=== PATIENT | female | born 1975 | race African-American/Black ===

== ENCOUNTER 2017-07-30 15:18 | Day surgery (SDC) | payer OTHER ==
[2017-07-30] MEDS ORDERED: LACTATED RINGER'S 1,000 ML IV* (16:00)
[2017-07-30 16:33] LABS: ADD MAN DIFF? NO
[2017-07-30 16:35] LABS: WHITE BLOOD COUNT 9.8 10^3/ul (4.8-10.8)
[2017-07-30 16:35] LABS: BASOPHIL # 0.1 10^3/ul (0.0-0.1); BASOPHILS % 0.5 % (0.0-2.0); EOSINOPHILS # 0.3 10^3/ul (0.0-0.5); EOSINOPHILS % 2.6 % (0.0-7.0); HEMATOCRIT 30.3 % (37.0-47.0); HEMOGLOBIN 10.9 g/dl (12.0-16.0); LYMPHOCYTES # 1.8 10^3/ul (0.8-2.9); MEAN CORPUSCULAR HEMOGLOBIN 32.7 pg (29.0-33.0); MEAN PLATELET VOLUME 10.1 fl (7.4-10.4); MONOCYTE # 0.4 10^3/ul (0.3-0.9); MONOCYTES % 4.5 % (0.0-11.0); NEUTROPHIL # 7.3 10^3/ul (1.6-7.5); NEUTROPHILS % 74.1 % (39.0-77.0); PLATELET COUNT 241 10^3/UL (140-415); RED BLOOD COUNT 3.33 10^6/ul (4.20-5.40); RED CELL DISTRIBUTION WIDTH 20.2 % (11.5-14.5)
[2017-07-30 16:41] LABS: ADD UMIC YES; UR ASCORBIC ACID NEGATIVE (NEGATIVE); UR BACTERIA FEW /HPF (NONE SEEN); UR BILIRUBIN (Dip) NEGATIVE (NEGATIVE); UR BLOOD (Dip) 3+ mg/dL (NEGATIVE); UR CLARITY CLEAR (CLEAR); UR COLOR YELLOW (YELLOW); UR GLUCOSE (Dip) NEGATIVE (NEGATIVE); UR KETONES (Dip) NEGATIVE (NEGATIVE); UR LEUKOCYTE ESTERASE (Dip) 1+ Leu/ul (NEGATIVE); UR MUCUS FEW /HPF (NONE SEEN); UR NITRITE (Dip) NEGATIVE (NEGATIVE); UR RBC 13 /HPF (0-5); UR SPECIFIC GRAVITY (Dip) 1.012 (1.003-1.030); UR SQUAMOUS EPITHELIAL CELL FEW /HPF (FEW); UR TOTAL PROTEIN (Dip) NEGATIVE (NEGATIVE); UR UROBILINOGEN (Dip) NEGATIVE (NEGATIVE); UR WBC 3 /HPF (0-5)
[2017-07-30] MEDS ORDERED: MIDAZOLAM 1 MG/ML 2 ML INJ (16:42)
[2017-07-30 16:55] LABS: ALANINE AMINOTRANSFERASE 25 IU/L (13-69); ALBUMIN 4.2 g/dl (3.3-4.9); ALBUMIN/GLOBULIN RATIO 1.31; ALKALINE PHOSPHATASE 54 IU/L (42-121); ANION GAP 14 (8-16); ASPARTATE AMINO TRANSFERASE 24 IU/L (15-46); BILIRUBIN,INDIRECT 0.2 mg/dl (0-1.1); BILIRUBIN,TOTAL 0.2 mg/dl (0.2-1.3); CARBON DIOXIDE 24 mmol/L (21-31); CHLORIDE 105 mmol/L (97-110); GLUCOSE 84 mg/dl (70-220); TOTAL PROTEIN 7.4 g/dl (6.1-8.1)
[2017-07-30 16:56] LABS: INR 0.95; PROTIME 12.8 Sec (11.9-14.9)
[2017-07-30 16:58] LABS: BLOOD UREA NITROGEN 12 mg/dl (7-20); CALCIUM 8.8 mg/dl (8.4-10.2); CREATININE 0.51 mg/dl (0.44-1.00); POTASSIUM 3.8 mmol/L (3.5-5.1); SODIUM 139 mmol/L (135-144)
[2017-07-30 17:01] LABS: PARTIAL THROMBOPLASTIN TIME 36.2 Sec (25.0-35.0)
[2017-07-30] MEDS ORDERED: PROPOFOL 20 ML (17:09)
[2017-07-30] MEDS ORDERED: LIDOCAINE 2% (SDV) 5 ML INJ (17:09)
[2017-07-30] MEDS ORDERED: CEFAZOLIN 1 GM INJ (17:21)
[2017-07-30] MEDS ORDERED: DEXAMETHASONE 4 MG/ML 1 ML INJ (17:26)
[2017-07-30] MEDS ORDERED: ONDANSETRON 4 MG INJ (17:26)
[2017-07-30] MEDS ORDERED: FENTAnyl 50 MCG/ML VIAL (17:29)
[2017-07-30] MEDS ORDERED: OXYTOCIN 10 UNIT INJ (17:35)
[2017-07-30] MEDS ORDERED: EPHEDrine SULFATE 50 MG/5 ML SYG (17:41)
[2017-07-30] MEDS ORDERED: KETOROLAC 30 MG INJ (18:20)
[2017-07-30] MEDS: KETOROLAC 30 MG INJ IM (18:45)
== END 2017-07-30 19:15 | disposition home or self-care (01) ==
LOC: SDS 15:18
DX: O02.1 Missed abortion (principal)
CPT/HCPCS: 59820; 71045; 80053; 81001; 85025; 85610; 85730; 86900; 86901; 88305; 93005

== ENCOUNTER 2017-10-17 07:49 | Emergency (ER) | payer OTHER ==
[2017-10-17] MEDS: KETOROLAC 30 MG INJ IM (08:43)
== END 2017-10-17 09:10 | disposition home or self-care (01) ==
LOC: FTE 07:49
DX: S93.401A Sprain of unspecified ligament of right ankle, initial encounter (principal); W18.49XA Other slipping, tripping and stumbling without falling, initial encounter; Y92.9 Unspecified place or not applicable
CPT/HCPCS: 73610; 73610-RT; 73630; 81025; 99283-25

== ENCOUNTER 2018-05-09 14:16 | Emergency (ER) | payer OTHER ==
[2018-05-09 15:26] LABS: ADD MAN DIFF? NO
[2018-05-09 15:29] LABS: BASOPHIL # 0.1 10^3/ul (0.0-0.1); BASOPHILS % 0.5 % (0.0-2.0); EOSINOPHILS # 0.5 10^3/ul (0.0-0.5); EOSINOPHILS % 5.1 % (0.0-7.0); HEMATOCRIT 29.4 % (37.0-47.0); HEMOGLOBIN 10.9 g/dl (12.0-16.0); LYMPHOCYTES % 20.2 % (15.0-51.0); MEAN CORPUSCULAR HEMOGLOBIN 37.6 pg (29.0-33.0); MEAN CORPUSCULAR HGB CONC 37.1 g/dl (32.0-37.0); MEAN CORPUSCULAR VOLUME 101.4 fl (82.0-101.0); MEAN PLATELET VOLUME 10.1 fl (7.4-10.4); MONOCYTE # 0.7 10^3/ul (0.3-0.9); MONOCYTES % 7.1 % (0.0-11.0); NEUTROPHIL # 6.6 10^3/ul (1.6-7.5); NEUTROPHILS % 66.6 % (39.0-77.0); PLATELET COUNT 239 10^3/UL (140-415); RED CELL DISTRIBUTION WIDTH 14.6 % (11.5-14.5)
[2018-05-09 15:29] LABS: WHITE BLOOD COUNT 9.9 10^3/ul (4.8-10.8)
[2018-05-09 15:34] LABS: ADD UMIC YES; UR ASCORBIC ACID 20 mg/dL (NEGATIVE); UR BILIRUBIN (Dip) 1+ mg/dL (NEGATIVE); UR BLOOD (Dip) 3+ mg/dL (NEGATIVE); UR CLARITY SLIGHTLY CLOUDY (CLEAR); UR COLOR YELLOW (YELLOW); UR GLUCOSE (Dip) NEGATIVE (NEGATIVE); UR KETONES (Dip) NEGATIVE (NEGATIVE); UR LEUKOCYTE ESTERASE (Dip) NEGATIVE Leu/ul (NEGATIVE); UR MUCUS FEW /HPF (NONE SEEN); UR NITRITE (Dip) NEGATIVE (NEGATIVE); UR RBC 34 /HPF (0-5); UR SPECIFIC GRAVITY (Dip) 1.019 (1.003-1.030); UR TOTAL PROTEIN (Dip) NEGATIVE (NEGATIVE); UR UROBILINOGEN (Dip) NEGATIVE (NEGATIVE); UR WBC 2 /HPF (0-5)
[2018-05-09 15:58] LABS: ALANINE AMINOTRANSFERASE 18 IU/L (13-69); ALBUMIN 4.4 g/dl (3.3-4.9); ALBUMIN/GLOBULIN RATIO 1.33; ALKALINE PHOSPHATASE 60 IU/L (42-121); ANION GAP 5 (5-13); ASPARTATE AMINO TRANSFERASE 29 IU/L (15-46); BLOOD UREA NITROGEN 11 mg/dl (7-20); CALCIUM 10.1 mg/dl (8.4-10.2); CARBON DIOXIDE 27 mmol/L (21-31); CHLORIDE 104 mmol/L (97-110); CREATININE 0.42 mg/dl (0.44-1.00); Estimated GFR > 60 mL/min (>60); GLUCOSE 90 mg/dl (70-220); POTASSIUM 4.7 mmol/L (3.5-5.1); SODIUM 136 mmol/L (135-144); TOTAL PROTEIN 7.7 g/dl (6.1-8.1)
== END 2018-05-09 17:15 | disposition home or self-care (01) ==
LOC: FTE 14:16
DX: O99.512 Diseases of the respiratory system complicating pregnancy, second trimester (principal); O36.8920 Maternal care for other specified fetal problems, second trimester, not applicable or unspecified; J02.9 Acute pharyngitis, unspecified; Z3A.16 16 weeks gestation of pregnancy
CPT/HCPCS: 76536; 76805; 80053; 81001; 84702; 85025; 87880; 99284-25

== ENCOUNTER 2018-05-15 15:49 | Emergency (ER) | payer OTHER ==
[2018-05-15] MEDS: METOCLOPRAMIDE 10 MG INJ IV (17:41)
[2018-05-15] MEDS: DIPHENHYDRAMINE 50 MG INJ IV (17:41)
[2018-05-15] MEDS: ACETAMINOPHEN 325 MG TAB PO (17:41)
[2018-05-15] MEDS: SUMATRIPTAN 50 MG TAB PO (17:42)
[2018-05-15] MEDS: SOD CHLORIDE 0.9% 1,000 ML IV (17:42)
[2018-05-15 17:50] LABS: ADD MAN DIFF? NO
[2018-05-15 17:53] LABS: BASOPHIL # 0.1 10^3/ul (0.0-0.1); BASOPHILS % 0.5 % (0.0-2.0); EOSINOPHILS # 0.6 10^3/ul (0.0-0.5); EOSINOPHILS % 5.3 % (0.0-7.0); HEMATOCRIT 30.3 % (37.0-47.0); HEMOGLOBIN 10.5 g/dl (12.0-16.0); LYMPHOCYTES # 1.8 10^3/ul (0.8-2.9); LYMPHOCYTES % 16.7 % (15.0-51.0); MEAN CORPUSCULAR HEMOGLOBIN 34.9 pg (29.0-33.0); MEAN CORPUSCULAR HGB CONC 34.7 g/dl (32.0-37.0); MEAN CORPUSCULAR VOLUME 100.7 fl (82.0-101.0); MEAN PLATELET VOLUME 9.9 fl (7.4-10.4); MONOCYTE # 0.8 10^3/ul (0.3-0.9); MONOCYTES % 7.9 % (0.0-11.0); NEUTROPHIL # 7.2 10^3/ul (1.6-7.5); NEUTROPHILS % 69.1 % (39.0-77.0); PLATELET COUNT 217 10^3/UL (140-415); RED BLOOD COUNT 3.01 10^6/ul (4.20-5.40); RED CELL DISTRIBUTION WIDTH 14.4 % (11.5-14.5)
[2018-05-15 17:53] LABS: WHITE BLOOD COUNT 10.5 10^3/ul (4.8-10.8)
[2018-05-15 18:06] LABS: ADD UMIC YES; UR ASCORBIC ACID 40 mg/dL (NEGATIVE); UR BILIRUBIN (Dip) NEGATIVE (NEGATIVE); UR BLOOD (Dip) 3+ mg/dL (NEGATIVE); UR CLARITY SLIGHTLY CLOUDY (CLEAR); UR COLOR YELLOW (YELLOW); UR GLUCOSE (Dip) NEGATIVE (NEGATIVE); UR KETONES (Dip) NEGATIVE (NEGATIVE); UR LEUKOCYTE ESTERASE (Dip) NEGATIVE Leu/ul (NEGATIVE); UR MUCUS MODERATE /HPF (NONE SEEN); UR NITRITE (Dip) NEGATIVE (NEGATIVE); UR RBC 84 /HPF (0-5); UR SPECIFIC GRAVITY (Dip) 1.023 (1.003-1.030); UR SQUAMOUS EPITHELIAL CELL FEW /HPF (FEW); UR TOTAL PROTEIN (Dip) NEGATIVE (NEGATIVE); UR UROBILINOGEN (Dip) NEGATIVE (NEGATIVE); UR WBC 4 /HPF (0-5)
[2018-05-15 18:09] LABS: ALANINE AMINOTRANSFERASE 24 IU/L (13-69); ALBUMIN 3.9 g/dl (3.3-4.9); ALBUMIN/GLOBULIN RATIO 1.18; ALKALINE PHOSPHATASE 57 IU/L (42-121); ANION GAP 5 (5-13); ASPARTATE AMINO TRANSFERASE 26 IU/L (15-46); BILIRUBIN,INDIRECT 0.2 mg/dl (0-1.1); BILIRUBIN,TOTAL 0.2 mg/dl (0.2-1.3); BLOOD UREA NITROGEN 10 mg/dl (7-20); CALCIUM 9.5 mg/dl (8.4-10.2); CARBON DIOXIDE 26 mmol/L (21-31); CHLORIDE 104 mmol/L (97-110); CREATININE 0.49 mg/dl (0.44-1.00); Estimated GFR > 60 mL/min (>60); GLUCOSE 95 mg/dl (70-220); POTASSIUM 4.2 mmol/L (3.5-5.1); SODIUM 135 mmol/L (135-144); TOTAL PROTEIN 7.2 g/dl (6.1-8.1)
[2018-05-15 18:12] LABS: INR 0.92; PROTIME 12.5 Sec (11.9-14.9)
[2018-05-15 18:13] LABS: PARTIAL THROMBOPLASTIN TIME 32.1 Sec (23.0-35.0)
[2018-05-15] MEDS: MAGNESIUM SULFATE 2 GM/50 ML 50 ML IVPB (19:30)
== END 2018-05-15 21:35 | disposition home or self-care (01) ==
LOC: FTE 21:35
DX: O99.89 Other specified diseases and conditions complicating pregnancy, childbirth and the puerperium (principal); R51 Headache; O21.9 Vomiting of pregnancy, unspecified; R10.9 Unspecified abdominal pain; Z3A.17 17 weeks gestation of pregnancy; Z87.891 Personal history of nicotine dependence
CPT/HCPCS: 36415; 70544; 76805; 80053; 81001; 84702; 85025; 85610; 85730; 86900; 86901; 96361; 96365; 96366; 96375; 99285-25

== ENCOUNTER 2018-05-19 19:23 | Emergency (ER) | payer OTHER ==
[2018-05-19] MEDS: DIPHENHYDRAMINE 50 MG INJ IV (23:49)
[2018-05-19] MEDS: SOD CHLORIDE 0.9% 1,000 ML IV (23:49)
[2018-05-19] MEDS: METOCLOPRAMIDE 10 MG INJ IV (23:49)
== END 2018-05-20 01:00 | disposition home or self-care (01) ==
LOC: FTE 05-20 01:00
DX: O99.89 Other specified diseases and conditions complicating pregnancy, childbirth and the puerperium (principal); R51 Headache; O26.892 Other specified pregnancy related conditions, second trimester; R10.9 Unspecified abdominal pain; Z3A.17 17 weeks gestation of pregnancy
CPT/HCPCS: 76805; 96361; 96374; 96375; 99285-25

== ENCOUNTER 2018-07-29 17:36 | Outpatient (CLI) | payer OTHER | END 2018-07-29 19:15 | disposition home or self-care (01) | LOC: OBT 17:36 → L-D 17:38 → OBT 19:15 | DX: O36.8120 Decreased fetal movements, second trimester, not applicable or unspecified (principal); O26.892 Other specified pregnancy related conditions, second trimester; H92.09 Otalgia, unspecified ear; O09.522 Supervision of elderly multigravida, second trimester; Z3A.27 27 weeks gestation of pregnancy | CPT/HCPCS: 76818 ==

== ENCOUNTER 2018-09-01 18:27 | Outpatient (CLI) | payer OTHER | END 2018-09-01 20:15 | disposition home or self-care (01) | LOC: OBT 18:27 → L-D 18:28 → OBT 20:15 | DX: O36.8130 Decreased fetal movements, third trimester, not applicable or unspecified (principal); Z3A.33 33 weeks gestation of pregnancy | CPT/HCPCS: 76815; 76818 ==

== ENCOUNTER 2018-09-18 21:42 | Outpatient (CLI) | payer OTHER ==
[2018-09-18] MEDS ORDERED: TERBUTALINE 1 ML (22:20)
[2018-09-18 22:33] LABS: ADD UMIC YES; UR ASCORBIC ACID NEGATIVE (NEGATIVE); UR BILIRUBIN (Dip) NEGATIVE (NEGATIVE); UR BLOOD (Dip) 2+ mg/dL (NEGATIVE); UR CLARITY SLIGHTLY CLOUDY (CLEAR); UR COLOR YELLOW (YELLOW); UR GLUCOSE (Dip) NEGATIVE (NEGATIVE); UR KETONES (Dip) NEGATIVE (NEGATIVE); UR LEUKOCYTE ESTERASE (Dip) NEGATIVE Leu/ul (NEGATIVE); UR MUCUS MODERATE /HPF (NONE SEEN); UR NITRITE (Dip) NEGATIVE (NEGATIVE); UR RBC 35 /HPF (0-5); UR SPECIFIC GRAVITY (Dip) 1.019 (1.003-1.030); UR TOTAL PROTEIN (Dip) 1+ mg/dl (NEGATIVE); UR UROBILINOGEN (Dip) NEGATIVE (NEGATIVE); UR WBC 2 /HPF (0-5)
[2018-09-18] MEDS: TERBUTALINE 1 MG/ML INJ SC (22:39)
[2018-09-18] MEDS: LACTATED RINGER'S 1,000 ML IV (22:39)
== END 2018-09-18 23:37 | disposition home or self-care (01) ==
LOC: OBT 21:42 → L-D 21:42 → OBT 23:37
DX: O26.893 Other specified pregnancy related conditions, third trimester (principal); R10.2 Pelvic and perineal pain; Z3A.35 35 weeks gestation of pregnancy
CPT/HCPCS: 36415; 76818; 81001; 87086; 96360; 96372

== ENCOUNTER 2018-09-21 10:45 | Outpatient (CLI) | payer OTHER | END 2018-09-21 13:03 | disposition home or self-care (01) | LOC: OBT 10:45 → L-D 10:47 → OBT 13:03 | DX: O76 Abnormality in fetal heart rate and rhythm complicating labor and delivery (principal); Z3A.35 35 weeks gestation of pregnancy | CPT/HCPCS: 76818 ==

== ENCOUNTER 2018-09-27 08:59 | Inpatient (IN) | payer OTHER ==
[2018-09-27] MEDS ORDERED: TERBUTALINE 1 ML (09:34)
[2018-09-27] MEDS: TERBUTALINE 1 MG/ML INJ SC (09:38)
[2018-09-27 09:45] LABS: ADD MAN DIFF? NO
[2018-09-27 09:48] LABS: WHITE BLOOD COUNT 10.9 10^3/ul (4.8-10.8)
[2018-09-27 09:48] LABS: BASOPHILS % 0.3 % (0.0-2.0); EOSINOPHILS # 0.1 10^3/ul (0.0-0.5); EOSINOPHILS % 0.9 % (0.0-7.0); HEMATOCRIT 28.7 % (37.0-47.0); HEMOGLOBIN 9.9 g/dl (12.0-16.0); LYMPHOCYTES # 1.6 10^3/ul (0.8-2.9); LYMPHOCYTES % 14.8 % (15.0-51.0); MEAN CORPUSCULAR HEMOGLOBIN 33.4 pg (29.0-33.0); MEAN CORPUSCULAR HGB CONC 34.5 g/dl (32.0-37.0); MEAN PLATELET VOLUME 10.1 fl (7.4-10.4); MONOCYTE # 0.7 10^3/ul (0.3-0.9); MONOCYTES % 6.7 % (0.0-11.0); NEUTROPHIL # 8.4 10^3/ul (1.6-7.5); NEUTROPHILS % 76.8 % (39.0-77.0); PLATELET COUNT 200 10^3/UL (140-415); RED BLOOD COUNT 2.96 10^6/ul (4.20-5.40); RED CELL DISTRIBUTION WIDTH 13.2 % (11.5-14.5)
[2018-09-27] MEDS ORDERED: OXYTOCIN 30 UNITS/LR 500 ML IV ×2 (10:00→16:00)
[2018-09-27] MEDS ORDERED: CARBOPROST 250 MCG INJ IM ×2 (10:00→16:00)
[2018-09-27] MEDS ORDERED: MISOPROSTOL 200 MCG TAB PR ×2 (10:00→16:00)
[2018-09-27] MEDS ORDERED: METHYLERGONOVINE 0.2 MG INJ IM ×2 (10:00→16:00)
[2018-09-27 10:05] LABS: PROTIME 12.3 Sec (11.9-14.9)
[2018-09-27 10:06] LABS: PARTIAL THROMBOPLASTIN TIME 29.7 Sec (23.0-35.0)
[2018-09-27] MEDS: LACTATED RINGER'S 1,000 ML IV ×3 (10:40→20:00)
[2018-09-27] MEDS ORDERED: ONDANSETRON 4 MG INJ (11:01)
[2018-09-27] MEDS ORDERED: OXYTOCIN 30 UNITS/LR 500 ML BAG IV (11:01)
[2018-09-27] MEDS ORDERED: morphine SULFATE/PF (10 MG/10 ML) INJ (11:01)
[2018-09-27] MEDS ORDERED: OXYTOCIN 10 UNIT INJ (11:01)
[2018-09-27 11:16] LABS: AMPHETAMINE/METHAMPHETAMINE Negative (NEGATIVE); BARBITURATES Positive (NEGATIVE); BENZODIAZEPINES Negative (NEGATIVE); CANNABINOIDS Negative (NEGATIVE); COCAINE Negative (NEGATIVE); OPIATES Negative (NEGATIVE)
[2018-09-27] MEDS ORDERED: PHENYLephrine 10 MG INJ (11:18)
[2018-09-27 11:25] LABS: HEPATITIS B SURFACE ANTIGEN NEGATIVE (NEGATIVE)
[2018-09-27] MEDS ORDERED: ONDANSETRON 4 MG INJ IV ×2 (11:30→17:30)
[2018-09-27] MEDS ORDERED: KETOROLAC 30 MG INJ IV (11:30)
[2018-09-27] MEDS ORDERED: NALOXONE (0.4 MG/ML) INJ IV ×2 (11:30→17:30)
[2018-09-27] MEDS ORDERED: MIDAZOLAM 1 MG/ML 2 ML INJ (11:52)
[2018-09-27] MEDS ORDERED: KETOROLAC 30 MG INJ (12:07)
[2018-09-27] MEDS: CEFAZOLIN 2 GM/50 ML (PMX) 50 ML IVPB (13:37)
[2018-09-27] MEDS: OXYTOCIN 30 UNITS/LR 500 ML IV ×4 (13:38→22:47)
[2018-09-27] MEDS: DIPHENHYDRAMINE 50 MG INJ IV ×2 (15:01→21:27)
[2018-09-27] MEDS: morphine 2 MG INJ IV (15:02)
[2018-09-27] MEDS ORDERED: NACL 0.9% 3 ML SYG IV (16:00)
[2018-09-27] MEDS ORDERED: HYDROCODONE/APAP (5/325) TAB PO ×2 (16:00)
[2018-09-27] MEDS ORDERED: morphine 2 MG INJ IV (17:30)
[2018-09-27] MEDS: LANOLIN HPA 1 PKT TOP (18:09)
[2018-09-27 19:37] LABS: RAPID PLASMA REAGIN NONREACTIVE (NR)
[2018-09-27] MEDS: KETOROLAC 30 MG INJ IV (21:28)
[2018-09-27] MEDS ORDERED: IBUPROFEN 800 MG TAB PO (22:00)
[2018-09-28] MEDS: KETOROLAC 30 MG INJ IV ×2 (03:40→10:28)
[2018-09-28] MEDS: LACTATED RINGER'S 1,000 ML IV ×3 (04:00→20:00)
[2018-09-28 08:11] LABS: ADD MAN DIFF? NO
[2018-09-28 08:16] LABS: WHITE BLOOD COUNT 7.7 10^3/ul (4.8-10.8)
[2018-09-28 08:16] LABS: BASOPHILS % 0.1 % (0.0-2.0); EOSINOPHILS # 0.2 10^3/ul (0.0-0.5); EOSINOPHILS % 1.9 % (0.0-7.0); HEMOGLOBIN 8.4 g/dl (12.0-16.0); LYMPHOCYTES # 1.4 10^3/ul (0.8-2.9); LYMPHOCYTES % 18.4 % (15.0-51.0); MEAN CORPUSCULAR HEMOGLOBIN 34.3 pg (29.0-33.0); MEAN PLATELET VOLUME 10.7 fl (7.4-10.4); MONOCYTE # 0.5 10^3/ul (0.3-0.9); MONOCYTES % 6.9 % (0.0-11.0); NEUTROPHIL # 5.6 10^3/ul (1.6-7.5); NEUTROPHILS % 72.3 % (39.0-77.0); PLATELET COUNT 178 10^3/UL (140-415); RED BLOOD COUNT 2.45 10^6/ul (4.20-5.40); RED CELL DISTRIBUTION WIDTH 13.5 % (11.5-14.5)
[2018-09-28] MEDS: IBUPROFEN 800 MG TAB PO ×2 (14:35→21:33)
[2018-09-28] MEDS: DOCUSATE SODIUM 100 MG CAP PO (14:40)
[2018-09-28] MEDS: ACETAMINOPHEN/CODEINE #3 TAB PO ×2 (17:03→22:18)
[2018-09-29] MEDS: ACETAMINOPHEN/CODEINE #3 TAB PO ×3 (02:10→12:19)
[2018-09-29] MEDS: LACTATED RINGER'S 1,000 ML IV (04:00)
[2018-09-29] MEDS: IBUPROFEN 800 MG TAB PO ×3 (06:21→21:29)
[2018-09-29] MEDS: DOCUSATE SODIUM 100 MG CAP PO ×2 (10:11→21:28)
[2018-09-30] MEDS: IBUPROFEN 800 MG TAB PO ×2 (05:32→13:27)
[2018-09-30] MEDS: DOCUSATE SODIUM 100 MG CAP PO (08:59)
[2018-09-30] MEDS: DIPHTH/TET/ACEL PERTUSS (ADULT) 0.5 ML VIAL IM* (10:36)
[2018-09-30] MEDS: MEASLES,MUMPS,RUBELLA VACCINE INJ SC* (10:39)
== END 2018-09-30 13:43 | disposition home or self-care (01) | DRG 785 ==
LOC: OBT 08:59 → L-D 08:59 → OBT 09:34 → L-D 09:47 → PP1 16:11
PROVIDERS: Obstetrics & Gynecology
PROC: 10D00Z1 Extraction of Products of Conception, Low, Open Approach (ICD-10-PCS; principal; 2018-09-27)
PROC: 0UT70ZZ Resection of Bilateral Fallopian Tubes, Open Approach (ICD-10-PCS; 2018-09-27)
DX: O60.13X0 Preterm labor second trimester with preterm delivery third trimester, not applicable or unspecified (principal); O65.5 Obstructed labor due to abnormality of maternal pelvic organs; O34.211 Maternal care for low transverse scar from previous cesarean delivery; Z3A.36 36 weeks gestation of pregnancy; Z37.0 Single live birth; Z30.2 Encounter for sterilization
CPT/HCPCS: 76818; 80307; 85025; 85610; 85730; 86592; 86850; 86900; 86901; 87340; 88302; 88307; 90715; 99464